=== PATIENT | female | born 1995 | race Caucasian/White ===

== ENCOUNTER 2018-11-05 15:25 | Emergency (ER) | payer OTHER ==
[2018-11-05] MEDS ORDERED: IV NORMAL SALINE 1,000ML 1,000 ML IV SCH (15:43)
[2018-11-05 16:00] VITALS: BP 102/56
[2018-11-05 16:11] LABS: BACTERIA,URINE 0 /HPF (0-FEW); BILIRUBIN,URINE NEG (NEG); CLARITY,URINE HAZY; COLOR,URINE STRAW; GLUCOSE,URINE NEG (NEG); NITRITE,URINE NEG (NEG); RBC,URINE 0 /HPF (0-2); SQUAMOUS EPITHELIAL CELL,UR OCC /LPF; UROBILINOGEN,URINE 0.2 mg/dL (0.2 mg/dL)
[2018-11-05 16:25] LABS: BASO # 0.1 x10^3/uL (0.0-0.2); BASO % 1 % (0-3); EOS # 0.1 x10^3/uL (0.0-0.7); EOS % 1 % (0-3); HEMATOCRIT 34.1 % (36.0-47.0); HEMOGLOBIN 10.9 g/dL (12.0-15.5); LYMPH # 1.4 x10^3/uL (1.0-4.8); LYMPH % 15 % (24-48); MEAN CORPUSCULAR HEMOGLOBIN 27 pg (25-35); MEAN CORPUSCULAR HGB CONC 32 g/dL (31-37); MEAN CORPUSCULAR VOLUME 83 fL (79-100); MONO # 0.9 x10^3/uL (0.0-1.1); MONO % 10 % (0-9); NEUT # 6.8 x10^3uL (1.8-7.7); NEUT % 74 % (31-73); PLATELET COUNT 453 x10^3/uL (140-400); RED BLOOD COUNT 4.12 x10^6/uL (3.50-5.40); RED CELL DISTRIBUTION WIDTH 15.8 % (11.5-14.5); WHITE BLOOD COUNT 9.2 x10^3/uL (4.0-11.0)
[2018-11-05 16:36] LABS: CALCIUM 9.3 mg/dL (8.5-10.1); CREATININE 0.6 mg/dL (0.6-1.0); GFR 122.8; POTASSIUM 3.9 mmol/L (3.5-5.1); TOTAL BILIRUBIN 0.3 mg/dL (0.2-1.0); TOTAL PROTEIN 8.1 g/dL (6.4-8.2)
--- NOTE | 2018-11-05 17:03 | RAD ---
Examination: Obstetric ultrasound less than 14 weeks HISTORY: History of pelvic pain, . COMPARISON: None available FINDINGS: The uterus measures 10.0 x 5.0 x 6 cm. The right ovary measures 3.7 x 2.0 x 2.1 cm. The left ovary measures 3.5 x 2.1 x 1.8 cm. Intrauterine gestational sac is identified. A yolk sac identified. pole is not evident. LMP 09/20/2018. Clinical age 6 weeks and 4 days with expected date of delivery by LMP 06/27/2019. Ultrasound age is 5 weeks and 5 days with expected date of delivery by ultrasound 07/03/2019 Gestational sac measures 1 cm corresponding to 5 weeks and 5 days. 2.1 cm cystic structure identified in the right ovary could be a collapsed corpus luteal cyst or hemorrhagic cyst. IMPRESSION: 1. Intrauterine gestational sac with yolk sac is identified. No pole identified. Probably very early . Close interval follow-up examination and serial quantitative beta-hCG levels is recommended. 2. A 2.1 cm cystic structure identified in the right ovary could be a collapsed corpus luteal cyst or hemorrhagic cyst. Close interval follow-up examination is recommended. Electronically signed by: Jayden Paulino MD (11/05/2018 5:00 PM) [facility]
[2018-11-05] MEDS ORDERED: ONDA4TAB7 PO (17:15)
--- NOTE | 2018-11-05 17:15 | PHYS DOC ---
Past History Past Medical History: No Pertinent History Past Surgical History: No Surgical History Alcohol Use: None Drug Use: None Adult General Chief Complaint Chief Complaint: ABDOMINAL PAIN IN HPI HPI Patient is a 23-year-old female who presents with report of lower abdominal cramping that she rates at a 2 out of 10. She states that she was just recently found to be on home test as well as a positive test at [facility]. She denies any vaginal bleeding. She is concerned about her as this is her first . She admits to a lot of nausea over the last couple of weeks but denies any vomiting. She denies any chest pain or shortness of breath.[] Review of Systems Review of Systems Constitutional: Denies fever or chills [] Respiratory: Denies cough or shortness of breath [] Cardiovascular: No additional information not addressed in HPI [] GI: Complains of lower abdominal cramping with nausea. Denies vomiting or diarrhea [] : Denies dysuria or hematuria [] All other systems were reviewed and found to be within normal limits, except as documented in this note. Current Medications Current Medications Current Medications Medications (Trade) Dose Ordered Sig/Fermin Start Time Stop Time Status Last Admin Dose Admin Sodium Chloride 1,000 ml @ 1,000 mls/hr Q1H 11/05/18 15:43 11/05/18 16:42 DC 11/05/18 16:09 1,000 MLS/HR Allergies Allergies Allergies Coded Allergies Type Severity Reaction Last Updated Verified No Known Drug Allergies 11/05/18 No Physical Exam Physical Exam Constitutional: Well developed, well nourished, no acute distress, non-toxic appearance. [] HENT: Normocephalic, atraumatic, bilateral external ears normal, oropharynx moist, no oral exudates, nose normal. [] Eyes: PERRLA, EOMI, conjunctiva normal, no discharge. [] Neck: Normal range of motion, no tenderness, supple, no stridor. [] Cardiovascular: Regular rate and rhythm[] Lungs & Thorax: Bilateral breath sounds clear to auscultation [] Abdomen: Bowel sounds normal, soft, with mild lower abdominal tenderness. [] Skin: Warm, dry, no erythema, no rash. [] Extremities: No tenderness, no cyanosis, no clubbing, ROM intact, no edema. [] Neurologic: Alert and oriented X 3, no focal deficits noted. [] Current Patient Data Vital Signs Vital Signs Date Time Temp Pulse Resp B/P (MAP) Pulse Ox O2 Delivery O2 Flow Rate FiO2 11/05/18 16:00 Room Air 11/05/18 16:00 20 98 Lab Results Laboratory Tests Test 11/05/18 15:50 11/05/18 16:00 Urine Collection Type Unknown Urine Color Straw Urine Clarity Hazy Urine pH 6.5 Urine Specific Bradford 1.015 Urine Protein Neg (NEG-TRACE) Urine Glucose (UA) Neg mg/dL (NEG) Urine Ketones (Stick) Neg mg/dL (NEG) Urine Blood Neg (NEG) Urine Nitrite Neg (NEG) Urine Bilirubin Neg (NEG) Urine Urobilinogen Dipstick 0.2 mg/dL (0.2 mg/dL) Urine Leukocyte Esterase Small (NEG) Urine RBC 0 /HPF (0-2) Urine WBC 1-4 /HPF (0-4) Urine Squamous Epithelial Cells Occ /LPF Urine Bacteria 0 /HPF (0-FEW) White Blood Count 9.2 x10^3/uL (4.0-11.0) Red Blood Count 4.12 x10^6/uL (3.50-5.40) Hemoglobin 10.9 g/dL (12.0-15.5) L Hematocrit 34.1 % (36.0-47.0) L Mean Corpuscular Volume 83 fL (79-100) Mean Corpuscular Hemoglobin 27 pg (25-35) Mean Corpuscular Hemoglobin Concent 32 g/dL (31-37) Red Cell Distribution Width 15.8 % (11.5-14.5) H Platelet Count 453 x10^3/uL (140-400) H Neutrophils (%) (Auto) 74 % (31-73) H Lymphocytes (%) (Auto) 15 % (24-48) L Monocytes (%) (Auto) 10 % (0-9) H Eosinophils (%) (Auto) 1 % (0-3) Basophils (%) (Auto) 1 % (0-3) Neutrophils # (Auto) 6.8 x10^3uL (1.8-7.7) Lymphocytes # (Auto) 1.4 x10^3/uL (1.0-4.8) Monocytes # (Auto) 0.9 x10^3/uL (0.0-1.1) Eosinophils # (Auto) 0.1 x10^3/uL (0.0-0.7) Basophils # (Auto) 0.1 x10^3/uL (0.0-0.2) Maternal Serum HCG Beta Subunit 30413 mIU/mL (0-6) H Sodium Level 136 mmol/L (136-145) Potassium Level 3.9 mmol/L (3.5-5.1) Chloride Level 102 mmol/L (98-107) Carbon Dioxide Level 23 mmol/L (21-32) Anion Gap 11 (6-14) Blood Urea Nitrogen 7 mg/dL (7-20) Creatinine 0.6 mg/dL (0.6-1.0) Estimated GFR (Cockcroft-Gault) 122.8 BUN/Creatinine Ratio 12 (6-20) Glucose Level 88 mg/dL (70-99) Calcium Level 9.3 mg/dL (8.5-10.1) Total Bilirubin 0.3 mg/dL (0.2-1.0) Aspartate Amino Transferase (AST) 13 U/L (15-37) L Alanine Aminotransferase (ALT) 16 U/L (14-59) Alkaline Phosphatase 78 U/L (46-116) Total Protein 8.1 g/dL (6.4-8.2) Albumin 4.0 g/dL (3.4-5.0) Albumin/Globulin Ratio 1.0 (1.0-1.7) EKG EKG [] Radiology/Procedures Radiology/Procedures [] Impressions: PROCEDURE: OB <14 WKS W/TV Examination: Obstetric ultrasound less than 14 weeks HISTORY: History of pelvic pain, . COMPARISON: None available FINDINGS: The uterus measures 10.0 x 5.0 x 6 cm. The right ovary measures 3.7 x 2.0 x 2.1 cm. The left ovary measures 3.5 x 2.1 x 1.8 cm. Intrauterine gestational sac is identified. A yolk sac identified. pole is not evident. LMP 09/20/2018. Clinical age 6 weeks and 4 days with expected date of delivery by LMP 06/27/2019. Ultrasound age is 5 weeks and 5 days with expected date of delivery by ultrasound 07/03/2019 Gestational sac measures 1 cm corresponding to 5 weeks and 5 days. 2.1 cm cystic structure identified in the right ovary could be a collapsed corpus luteal cyst or hemorrhagic cyst. IMPRESSION: 1. Intrauterine gestational sac with yolk sac is identified. No pole identified. Probably very early . Close interval follow-up examination and serial quantitative beta-hCG levels is recommended. 2. A 2.1 cm cystic structure identified in the right ovary could be a collapsed corpus luteal cyst or hemorrhagic cyst. Close interval follow-up examination is recommended. Electronically signed by: Jayden Paulino MD (11/05/2018 5:00 PM) [facility] Course & Med Decision Making Course & Med Decision Making Pertinent Labs and Imaging studies reviewed. (See chart for details) [] Dragon Disclaimer Dragon Disclaimer This electronic medical record was generated, in whole or in part, using a voice recognition dictation system. Departure Departure: Impression: Primary Impression: Abdominal pain during Disposition: 01 HOME, SELF-CARE Condition: STABLE Referrals: JUANITA RAMIREZ DO (PCP) Patient Instructions: Abdominal Pain During Scripts Ondansetron Hcl (ZOFRAN) 4 Mg Tablet 4 MG PO Q6HRS PRN for NAUSEA, #12 TAB Prov: ROXIE BEACH Jr. DO 11/05/18 Problem Qualifiers Primary Impression: Abdominal pain during Trimester: first trimester Qualified Codes: O26.891 - Other specified related conditions, first trimester; R10.9 - Unspecified abdominal pain ROXIE BEACH Jr. DO Nov 05, 2018 17:15
== END 2018-11-05 18:00 | disposition home or self-care (01) ==
LOC: ER 15:25
DX: O26.891 Other specified pregnancy related conditions, first trimester (principal); R10.30 Lower abdominal pain, unspecified; Z3A.01 Less than 8 weeks gestation of pregnancy
CPT/HCPCS: 36415; 76801; 76817; 80053; 81001; 84702; 85025; 87086; 99285-25; J7030

== ENCOUNTER 2018-11-14 12:04 | Emergency (ER) | payer OTHER ==
[~2018-11-14] VITALS: Ht 160 cm; Wt 75.3 kg
[~2018-11-14 12:04] MED LIST: ONDA4TAB7 PO
[2018-11-14] MEDS ORDERED: IV NORMAL SALINE 1,000ML 1,000 ML IV ONE (12:30)
--- NOTE | 2018-11-14 12:34 | PHYS DOC ---
Past History Past Medical History: No Pertinent History Past Surgical History: No Surgical History Smoking: Non-smoker Alcohol Use: None Drug Use: None Adult General Chief Complaint Chief Complaint: ABDOMINAL PAIN IN HPI HPI Patient is a 23-year-old female presents with increasing lower abdominal pain and some vaginal spotting. Patient is with her first . She was seen approximately 8 or 9 days ago for similar discomfort without spotting at that time. The pain improved after that visit and started again last night. Nothing seems to make the discomfort better or worse. She continues to have some nausea without vomiting. No trauma. Pain is in the lower abdomen. Moderate in intensity. Nothing seems to make the discomfort better or worse. Other than bleeding she denies any vaginal discharge. No dysuria. No back pain or flank pain.[] Review of Systems Review of Systems Constitutional: Denies fever or chills [] Eyes: Denies change in visual acuity, redness, or eye pain [] HENT: Denies nasal congestion or sore throat [] Respiratory: Denies cough or shortness of breath [] Cardiovascular: No chest pain or palpitations[] GI: Denies abdominal pain, nausea, vomiting, bloody stools or diarrhea [] : Denies dysuria or hematuria, see history of present illness [] Musculoskeletal: Denies back pain or joint pain [] Integument: Denies rash or skin lesions [] Neurologic: Denies headache, focal weakness or sensory changes [] Endocrine: Denies polyuria or polydipsia [] All other systems were reviewed and found to be within normal limits, except as documented in this note. Current Medications Current Medications Current Medications Medications (Trade) Dose Ordered Sig/Fermin Start Time Stop Time Status Last Admin Dose Admin Sodium Chloride 1,000 ml @ 1,000 mls/hr 1X ONCE 11/14/18 12:30 11/14/18 13:29 UNV Allergies Allergies Allergies Coded Allergies Type Severity Reaction Last Updated Verified No Known Drug Allergies 11/05/18 No Physical Exam Physical Exam Constitutional: Well developed, well nourished, no acute distress, non-toxic appearance. [] HENT: Normocephalic, atraumatic, bilateral external ears normal, oropharynx moist, no oral exudates, nose normal. [] Eyes: PERRLA, EOMI, conjunctiva normal, no discharge. [] Neck: Normal range of motion, no tenderness, supple, no stridor. [] Cardiovascular:Heart rate regular rhythm, no murmur [] Lungs & Thorax: Bilateral breath sounds clear to auscultation [] Abdomen: Bowel sounds normal, soft, mild midline lower abdominal tenderness, no rebound, no guarding, no rigidity, no McBurney's point tenderness, able to sit up and lie back without any difficulty, no masses, no pulsatile masses. Pelvic exam performed with ell teacher: External genitalia: Normal external genitalia, Dwight's glands, Bartholin's glands, and urethra. Vaginal vault: No gross bleeding, no discharge in the vault. Cervix: nulliparous os, and no active bleeding, no discharge, os is closed.[] Skin: Warm, dry, no erythema, no rash. [] Back: No tenderness, no CVA tenderness. [] Extremities: No tenderness, no cyanosis, no clubbing, ROM intact, no edema. [] Neurologic: Alert and oriented X 3, normal motor function, normal sensory function, no focal deficits noted. [] Psychologic: Affect normal, judgement normal, mood normal. [] Current Patient Data Vital Signs Vital Signs Date Time Temp Pulse Resp B/P (MAP) Pulse Ox O2 Delivery O2 Flow Rate FiO2 11/14/18 12:15 97.9 83 20 99 Room Air EKG EKG [] Radiology/Procedures Radiology/Procedures PROCEDURE: TRANSVAGINAL Examination: TRANSVAGINAL History: Early with increasing pain and vaginal bleeding Comparison/Correlation: None Findings: Transvaginal pelvic ultrasound exam was performed. Uterus measures 10.2 cm x 6.4 cm x 6.1 cm. Cervical length is 4.3 cm. There is no fluid in the cul-de-sac. Normal amniotic fluid volume identified. Myometrium is normal. No subchronic hemorrhage. Right ovary measures 3.6 cm x 2.3 cm x 4.2 cm. Left ovary measures 2.6 cm x 2.9 cm x 2.27. No suspicious adnexal mass. Normal flow identified bilaterally. pole is identified with crown-rump length of 1.1 cm corresponding to 7 weeks 1 day gestation. Yolk sac identified. Mean intrauterine gestational sac diameter of 2.1 cm correspond to 7 weeks 0 days. EDC by ultrasound is 07/02/2019. Impression: Single living intrauterine gestation with age corresponding to 7 weeks 1 day by crown-rump length. This is 5 days less than expected by last menstrual period. No subchorionic hemorrhage [] Course & Med Decision Making Course & Med Decision Making Pertinent Labs and Imaging studies reviewed. (See chart for details) ED course: Patient arrived, was placed in bed, and tolerated exam well. She was transported to and from [facility] with any complications. IV fluids were started. Pelvic exam was performed with ell teacher. After the return of laboratory and imaging studies, these were discussed with the patient voiced understanding. All questions were answered. She was discharged in improved condition. Medical decision making: This appears to be a threatened miscarriage. There is no evidence of an ectopic . No evidence of surgical pathology at this time. No evidence of Rh isoimmunization given that the patient's blood type is A+. No evidence of urinary tract infection. No evidence of a starvation state.[] Dragon Disclaimer Dragon Disclaimer This electronic medical record was generated, in whole or in part, using a voice recognition dictation system. Departure Departure: Impression: Primary Impression: Threatened miscarriage Disposition: 01 HOME, SELF-CARE Condition: IMPROVED Referrals: JUANITA RAMIREZ DO (PCP) Follow-up in 2 days Patient Instructions: Threatened Miscarriage Additional Instructions: Follow-up with your regular doctor in 2 days. Return to the ER if worsening bleeding�soaking more than a pad an hour for 3 hours, passing tissues or clots, or any other concerns. Scripts Acetaminophen (TYLENOL) 325 Mg Tablet 1-2 TAB PO QID for PAIN, #60 TAB 0 Refills Prov: MC RASHEED DO 11/14/18 MC RASHEED DO Nov 14, 2018 12:34
[2018-11-14 12:52] LABS: BASO # 0.1 x10^3/uL (0.0-0.2); BASO % 1 % (0-3); EOS # 0.1 x10^3/uL (0.0-0.7); EOS % 1 % (0-3); HEMATOCRIT 32.2 % (36.0-47.0); HEMOGLOBIN 10.5 g/dL (12.0-15.5); LYMPH # 1.5 x10^3/uL (1.0-4.8); LYMPH % 18 % (24-48); MEAN CORPUSCULAR HEMOGLOBIN 27 pg (25-35); MEAN CORPUSCULAR HGB CONC 33 g/dL (31-37); MEAN CORPUSCULAR VOLUME 84 fL (79-100); MONO % 12 % (0-9); NEUT # 5.8 x10^3uL (1.8-7.7); NEUT % 68 % (31-73); PLATELET COUNT 373 x10^3/uL (140-400); RED BLOOD COUNT 3.84 x10^6/uL (3.50-5.40); RED CELL DISTRIBUTION WIDTH 17.5 % (11.5-14.5); WHITE BLOOD COUNT 8.5 x10^3/uL (4.0-11.0)
[2018-11-14 13:04] LABS: ALBUMIN 3.5 g/dL (3.4-5.0); CALCIUM 8.7 mg/dL (8.5-10.1); CREATININE 0.6 mg/dL (0.6-1.0); GFR 122.8; POTASSIUM 3.5 mmol/L (3.5-5.1); TOTAL BILIRUBIN 0.2 mg/dL (0.2-1.0)
--- NOTE | 2018-11-14 13:28 | RAD ---
Examination: TRANSVAGINAL History: Early with increasing pain and vaginal bleeding Comparison/Correlation: None Findings: Transvaginal pelvic ultrasound exam was performed. Uterus measures 10.2 cm x 6.4 cm x 6.1 cm. Cervical length is 4.3 cm. There is no fluid in the cul-de-sac. Normal amniotic fluid volume identified. Myometrium is normal. No subchronic hemorrhage. Right ovary measures 3.6 cm x 2.3 cm x 4.2 cm. Left ovary measures 2.6 cm x 2.9 cm x 2.27. No suspicious adnexal mass. Normal flow identified bilaterally. pole is identified with crown-rump length of 1.1 cm corresponding to 7 weeks 1 day gestation. Yolk sac identified. Mean intrauterine gestational sac diameter of 2.1 cm correspond to 7 weeks 0 days. EDC by ultrasound is 07/02/2019. Impression: Single living intrauterine gestation with age corresponding to 7 weeks 1 day by crown-rump length. This is 5 days less than expected by last menstrual period. No subchorionic hemorrhage Electronically signed by: Tu Guzman MD (11/14/2018 1:25 PM) [id number]
[2018-11-14 13:47] LABS: BACTERIA,URINE FEW /HPF (0-FEW); BILIRUBIN,URINE NEG (NEG); CLARITY,URINE HAZY; COLOR,URINE YELLOW; GLUCOSE,URINE NEG (NEG); NITRITE,URINE NEG (NEG); RBC,URINE OCC /HPF (0-2); SQUAMOUS EPITHELIAL CELL,UR FEW /LPF; UROBILINOGEN,URINE 0.2 mg/dL (0.2 mg/dL)
[2018-11-14] MEDS ORDERED: ACET325T9 PO (13:59)
[2018-11-14 14:25] VITALS: BP 103/62
== END 2018-11-14 14:26 | disposition home or self-care (01) ==
LOC: ER 12:04
DX: O20.0 Threatened abortion (principal); Z3A.01 Less than 8 weeks gestation of pregnancy
CPT/HCPCS: 36415; 76817; 80053; 81001; 84702; 85025; 86900; 86901; 87086; 87491; 87591; 99285; Q0111; J7030